=== PATIENT | male | born 1985 | race Two or more races ===

== ENCOUNTER 2024-06-25 18:29 | Emergency (ER) | payer SELFPAY ==
[~2024-06-25] VITALS: Ht 177.8 cm; Wt 109.3 kg
[2024-06-25 20:23] LABS: Urine Bacteria None Seen /hpf (None Seen)
[2024-06-25] MEDS ORDERED: ACET500T58 PO (20:35)
[2024-06-25] MEDS ORDERED: DOXY100C79 PO (20:35)
[2024-06-25] MEDS ORDERED: BACIOIN15 TOP (20:35)
--- NOTE | 2024-06-25 20:35 | ED.PDOC ---
General HPI Comments 39 YEAR OLD MALE PRESENTS TO ER WITH PENILE COMPLAINT X 2 DAYS. PATIENT STATES HE IS UNCIRCUMCISED AND STARTED EXPERIENCING PAIN/SWELLING/REDNESS SURROUNDING FORESKIN OF PENIS "RIGHT AFTER" HE HAD UNPROTECTED INTERCOURSE WITH A FEMALE 2 DAYS AGO. STATES HE JUST GO OUT OF SHELTER AND IT WAS THE FIRST TIME HE WAS SEXUALLY ACTIVE IN "A LONG TIME", DENYING ANY KNOWN STD HISTORY FOR HIM OR THE FEMALE HE HAD INTERCOURSE WITH. HE REPORTS 8/10 PAIN TO SURROUNDING FORESKIN OF PENIS AND DENIES USE OF MEDICATIONS FOR CURRENT SYMPTOMS. DENIES FEVER, BODY ACHES, CHILLS, NIGHT SWEATS, PENILE DISCHARGE, CHANGES IN URINATION OR ANY FURTHER SYMPTOMS/COMPLAINTS Chief Complaint: Urinary Time Seen by MD: 18:44 Primary Care Provider: UNKNOWN Reviewed notes: Nurses Notes, Medications, Allergies Allergies: Coded Allergies: NO KNOWN ALLERGIES (Unverified , 06/25/24) Home Meds Active Scripts Doxycycline (Monohydrate) (Doxycycline) 100 Mg Cap, 100 MG PO BID for 7 Days, #14 CAP 0 Refills Prov:ELIZABETH SAHU 06/25/24 Bacitracin Base (Bacitracin) 500 Unit/Gm Oin, 500 UNIT TOP TID for 7 Days, #1 OIN 0 Refills Prov:ELIZABETH SAHU 06/25/24 Acetaminophen (Acetaminophen) 500 Mg Tab, 500 MG PO Q4HPRN, #30 TAB 0 Refills Prov:ELIZABETH SAHU 06/25/24 Information Source: Patient Mode of Arrival: Ambulatory Past Medical History PAST MEDICAL HISTORY: Denies Surgical History: Denies all surgeries Family History Family History: Unknown Social History Smoker: Non-Smoker Alcohol: Denies ETOH Use Drugs: Marijuana Lives In: Home Constitutional: denies: chills, diaphoresis, fatigue, fever, malaise, sweats, weakness, others EENTM: denies: blurred vision, double vision, ear bleeding, ear discharge, ear drainage, ear pain, ear ringing, eye pain, eye redness, hearing loss, mouth pain, mouth swelling, nasal discharge, nose bleeding, nose congestion, nose pain, photophobia, tearing, throat pain, throat swelling, voice changes, others Respiratory: denies: cough, hemoptysis, orthopnea, SOB at rest, shortness of breath, SOB with excertion, stridor, wheezing, others Cardiovascular: denies: chest pain, dizzy spells, diaphoresis, Dyspnea on e xertion, edema, irregular heart beat, left arm pain, lightheadedness, palpitations, PND, syncope, others Gastrointestinal: denies: abdomen distended, abdominal pain, blood streaked bowels, constipated, diarrhea, dysphagia, difficulty swallowing, hematemesis, melena, nausea, poor appetite, poor fluid intake, rectal bleeding, rectal pain, vomiting, others Genitourinary: reports: others ( STATED IN HPI) Neurological: denies: dizziness, fainting, headache, left sided numbness, left sided weakness, numbness, paresthesia, pre-existing deficit, right sided numbness, right sided weakness, seizure, speech problems, tingling, tremors, weakness, others Musculoskeletal: denies: back pain, gout, joint pain, joint swelling, muscle pain, muscle stiffness, neck pain, others Integumetry: denies: bruises, change in color, change in hair/nails, dryness, laceration, lesions, lumps, rash, wounds, others Allergic/Immunocompromised: denies: Difficulty Healing, Frequent Infections, Hives, Itching, others Hematologic/Lymphatic: denies: anemia, blood clots, easy bleeding, easy bruising, swollen glands, others Endocrine: denies: excessive hunger, excessive sweating, excessive thirst, excessive urination, flushing, intolerance to cold, intolerance to heat, unexplained weight gain, unexplained weight loss, others Psychiatric: denies: anxiety, bipolar disorder, depression, hopeless, panic disorder, schizophrenia, sleepless, suicidal, others Physical Exam General Appearance: No Apparent Distress, Obese HEENT: PERRL/EOMI Neck: Full Range of Motion, Non-Tender, Normal Respiratory: Chest Non-Tender, Lungs Clear, No Accessory Muscle Use, No Respiratory Distress, Normal Breath Sounds Cardiovascular: No Murmur, No Gallop, Regular Rate/Rhythm Breast Exam: Deferred Gastrointestinal: Non Tender, No Pulsatile Mass, Soft Genitalia: Other (PATIENT IS UNCIRCUMCISED. MILD SWELLING/ERYTHEMA NOTED TO FORESKIN. NO DRAINAGE NOTED. NO PHIMOSIS/PARAPHIMOSIS NOTED. REMAINDER OF GENITALIA EXAMINATION-UNREMARKABLE) Pelvic: Deferred Rectal: Deferred Extremities: Normal capillary refill, Normal range of motion Neurologic: Alert, No Motor Deficits, Normal Affect, Normal Mood, No Sensory Deficits Cerebellar Function: Normal Reflexes: Normal Skin: Dry, Warm Lymphatic: No Adenopathy Was a procedure done? Was a procedure done?: No Sedation Sedation?: No Differential Diagnosis Kidney stone (Female): N/A Penile/Scrotal: Epidiymitis, STD, Phimosis Urinary Problem (Male): Urethritis, Urinary Retention X-Ray, Labs, Meds, VS Vital Signs Date Time Temp Pulse Resp B/P (MAP) Pulse Ox O2 Delivery O2 Flow Rate FiO2 06/25/24 20:58 98.2 85 21 146/78 (100) 98 98.2 06/25/24 19:42 104 15 96 Room Air 06/25/24 19:42 97.3 104 15 159/94 (115) 96 97.3 06/25/24 18:40 97.3 104 15 159/99 (119) 96 97.3 Lab Test 06/25/24 19:45 Range/Units Urine Color Yellow Yellow Urine Clarity Clear Clear Urine pH 6.0 5.0-9.0 Urine Specific [place] 1.023 1.001-1.035 Urine Protein Trace H Negative Urine Ketones Negative Negative Urine Blood 1+ H Negative /uL Urine Nitrite Negative Negative Urine Bilirubin Negative Negative Urine Urobilinogen Normal Negative mg/dL Urine Leukocyte Esterase Trace Negative /uL Urine RBC 2 0 - 3 /hpf Urine Microscopic WBC 2 0-3 /HPF Urine Squamous Epithelial Cells None seen <5 /hpf Urine Bacteria None seen None Seen /hpf Urine Mucus Few None Seen Urine Glucose Normal Normal mg/dL Chlamydia trachomatis ([facility]) Pending Neisseria gonorrhoeae ([facility]) Pending Current Medications Medications (Trade) Dose Ordered Sig/Kelly Route Start Time Stop Time Status Last Admin Ceftriaxone Sodium (Rocephin) 1,000 mg ONCE ONCE IM 06/25/24 20:45 06/25/24 20:46 DC 06/25/24 21:07 Azithromycin (Zithromax Tablet) 1,000 mg ONCE ONCE PO 06/25/24 21:00 06/25/24 21:08 DC 06/25/24 21:09 Lidocaine HCl (Xylocaine 1%) 2.1 ml ONCE ONCE IJ 06/25/24 21:00 06/25/24 21:01 DC 06/25/24 21:08 URINALYSIS REVIEWED-URINE LEUKOCYTE ESTERASE TRACE, URINE NITRITES NEGATIVE, URINE BLOOD 1+ ROCEPHIN 1 G IM ORDERED AZITHROMYCIN 1 G P.O. ORDERED CHLAMYDIA/GONORRHEA AMPLIFICATION TEST ORDERED ADVISED TO REFRAIN FROM SEXUAL INTERCOURSE FOR AT LEAST ONE WEEK SAFE SEX [facility]ACT[facility] DISCUSSED AND ADVISED ADVISED TO FOLLOW UP WITH PCP IN 1-2 DAYS PATIENT VERBALIZED UNDERSTANDING AND AGREEABLE WITH CURRENT PLAN OF CARE ADVISED TO RETURN TO ER IMMEDIATELY IF SYMPTOMS WORSEN Time of 1ST Reevaluation: 20:12 Reevaluation 1ST: N/A Patient Education/Counseling: Diagnosis, Treatment, Prognosis, Need For Follow Up Family Education/Counseling: No Family Present Departure 1 Departure Time of Disposition: 20:32 Impression: Primary Impression: Cellulitis of shaft of penis Additional Impressions: Possible exposure to STD UTI (urinary tract infection) Qualified Codes: N30.01 - Acute cystitis with hematuria Disposition: HOME / SELF CARE / HOMELESS Condition: Stable e-Prescriptions Doxycycline (Monohydrate) (Doxycycline) 100 Mg Cap 100 MG PO BID for 7 Days, #14 CAP 0 Refills Prov: ELIZABETH SAHU 06/25/24 Bacitracin Base (Bacitracin) 500 Unit/Gm Oin 500 UNIT TOP TID for 7 Days, #1 OIN 0 Refills Prov: ELIZABETH SAHU 06/25/24 Acetaminophen (Acetaminophen) 500 Mg Tab 500 MG PO Q4HPRN, #30 TAB 0 Refills Prov: ELIZABETH SAHU 06/25/24 Discharged With: Self Critical Care Note Critical Care Time?: No Stability Stability form required: No Heart Score Heart Score: Heart Score Response (Comments) Value History N/A 0 EKG N/A 0 Age N/A 0 Risk Factors N/A 0 Troponin N/A 0 Total 0 ELIZABETH SAHU Jun 25, 2024 20:35
[2024-06-25 20:51] LABS: Urine Blood 1+ /uL (Negative); Urine Clarity Clear (Clear); Urine Color Yellow (Yellow); Urine Mucus FEW (None Seen); Urine Protein, UAD TRACE (Negative); Urine Specific Gravity 1.023 (1.001-1.035); Urine Squamous Epithelial Cell None Seen /hpf (<5); Urine Urobilinogen Normal (Negative); Urine WBC 2 /HPF (0-3)
[2024-06-25 20:58] VITALS: BP 146/78; PULSE 85; RESP 21; TEMP 98.2; O2SAT 98
[2024-06-25] MEDS: cefTRIAXone SOD 1,000 MG VL IM ONE (21:07)
[2024-06-25] MEDS: LIDOCAINE 1% HCL (LOCAL ANESTH.) INJ 20ML MDV IJ ONE (21:08)
[2024-06-25] MEDS: AZITHROMYCIN 250 MG TAB PO ONE (21:09)
[2024-06-27 23:06] LABS: Chlamydia Trachomatis, NAA Negative (Negative); Neisseria gonorrhoeae, NAA Negative (Negative)
== END 2024-06-25 21:36 | disposition home or self-care (01) ==
LOC: ER 18:35
DX: N48.22 Cellulitis of corpus cavernosum and penis (principal); N39.0 Urinary tract infection, site not specified; Z20.2 Contact with and (suspected) exposure to infections with a predominantly sexual mode of transmission
CPT/HCPCS: 81001; 87491; 87591; 96372; 99283; J0696; J2003